=== PATIENT | female | born 1940 | race Two or more races ===

== ENCOUNTER 2019-04-10 16:32 | Emergency (ER) | payer OTHER ==
[~2019-04-10] VITALS: Ht 157.5 cm; Wt 77.6 kg
[~2019-04-10 16:32] MED LIST: AMARYL 2 MG PO; ATROVENT 00.5 MG/2.5 IH; BENZONATATE200 M1 PO; COZAAR100 MG PO; ELAVIL PO; IOPHEN DM-100 MG/5 M PO; NIFE60TA3 PO; Neurontin PO; OXYC1TAB9 PO; RESTORIL15 MG PO; XOPENEX0.63 MG/3 IH
[2019-04-10] MEDS ORDERED: FORTAMET500 MG (17:09)
[2019-04-10] MEDS ORDERED: ALL DAY ALLERGY10 M3 (17:10)
[2019-04-10] MEDS ORDERED: SIMBRINZA 1%-0.28 ML (17:11)
[2019-04-10] MEDS ORDERED: SERTRALINE20 MG/1 ML (17:11)
[2019-04-10] MEDS ORDERED: PROTONIX40 M1 (17:11)
[2019-04-10] MEDS ORDERED: PREDNISOLONE SO10 ML (17:12)
[2019-04-10] MEDS ORDERED: RISPERDAL0.5 MG (17:13)
== END 2019-04-12 15:48 | disposition designated cancer center or children's hospital (05) ==
LOC: ER 16:32
DX: F32.3 Major depressive disorder, single episode, severe with psychotic features (principal); E86.0 Dehydration; E87.6 Hypokalemia; N39.0 Urinary tract infection, site not specified